=== PATIENT | male | born 2005 | race Caucasian/White ===

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

== ENCOUNTER → 2024-01-17 | Outpatient (CLI) | payer MEDICAID, SELFPAY ==
--- NOTE | 2024-01-17 17:09 | RAD_ITS ---
STUDY: X-RAY - LUMBAR SPINE REASON FOR EXAM: Male, 18 years old. LUMBAR STRAIN TECHNIQUE: 4 view(s) of the lumbar spine were obtained. COMPARISON: None FINDINGS: Normal lumbar lordosis. There is no substantial scoliosis. There is a normal alignment of the vertebrae. Normal vertebral bodies and endplates. Normal disc space heights. There is no demonstrated fracture or compression deformity. No pars interarticularis defects are seen. The soft tissue structures are unremarkable. RAD/L/S Spine Min 4 Views IMPRESSION: Normal x-ray examination of the lumbar spine. Electronically Signed: Gareth Dominguez MD at 8:40 EDT ,
--- OUTSIDE RECORDS SUMMARY | 2024-01-17 22:49 | XMS RPT_ITS | CCD ---
Author Name Unknown Address [address] [place] [address] Organization [facility] Care Team Providers Care Shipping Weigher Name Role Phone Robbie Iyre Primary Care Provider ROBBIE IYER Primary Care Unavailable REFERRED, SELF Referring Unavailable ROBBIE IYER Attending Unavailable REFERRED, SELF Referring Unavailable ROBBIE IYER Attending Unavailable ROBBIE IYER Primary Care Unavailable REFERRED, SELF Referring Unavailable ROBBIE IYER Attending Unavailable ROBBIE IYER Primary Care Unavailable Medications Current Medications Medication Drug Class(es) Dates Sig (Normalized) Sig (Original) oseltamivir 75 mg oral capsule (2 sources) Neuraminidase Inhibitor Start: 10-12-2022 End: 10-17-2022 take 1 capsule by mouth twice daily oseltamivir (TAMIFLU) 75 mg capsule Indications: Flu-like symptoms Take 1 capsule by mouth twice daily for 5 days. 10 capsule 0 10/12/2022 10/17/2022 Active Problems Problem Classification Problem Date Documented Da te Episodic/Chronic Other skin disorders (1 source) Skin lesion; Translations: [Disorder of the skin and subcutaneous tissue, unspecified] Episodic Residual codes; unclassified (1 source) Influenza-like symptoms; Translations: [Other general symptoms and signs] Episodic Results Test Name Value Interpretation Reference Range Facil ity Vital Signs Date Time Vital Sign Value Performing Clinician Faci lity 10-12-2022 18:52-0500 Body temperature 98.01 [degF] Jinny Obrien APRN.CNP Work Phone: [facility] 10-12-2022 18:52-0500 Body weight 71.22 kg Jinny Obrien APRN.CNP Work Phone: [facility] 10-12-2022 18:52-0500 Diastolic blood pressure 78 mm[Hg] Jinny Praisler-Wood RESERVOIR ENGINEERING CONSULTANT.IT PROGRAM ENGAGEMENT DIRECTOR Work Phone: [facility] 10-12-2022 18:52-0500 Heart rate 71 /min Jinny Praisler-Wood RESERVOIR ENGINEERING CONSULTANT.IT PROGRAM ENGAGEMENT DIRECTOR Work Phone: [facility] 10-12-2022 18:52-0500 Respiratory rate 16 /min Jinny Praisler-Wood RESERVOIR ENGINEERING CONSULTANT.IT PROGRAM ENGAGEMENT DIRECTOR Work Phone: [facility] 10-12-2022 18:52-0500 SaO2% (BldA) [Mass fraction] 97 % Jinny Praisler-Wood RESERVOIR ENGINEERING CONSULTANT.IT PROGRAM ENGAGEMENT DIRECTOR Work Phone: [facility] 10-12-2022 18:52-0500 Systolic blood pressure 128 mm[Hg] Jinny Praisler-Wood RESERVOIR ENGINEERING CONSULTANT.IT PROGRAM ENGAGEMENT DIRECTOR Work Phone: [facility] Encounters Encounter Date Encounter Type Care Provider Facility Start: 11-17-2023 End: 11-17-2023 ambulatory SELF REFERRED [facility] Start: 01-26-2023 End: 01-26-2023 ambulatory ROBBIE R [facility] Start: 12-30-2022 End: 12-30-2022 ambulatory SELF REFERRED [facility] Start: 10-13-2022 Telephone encounter Dorie lamar PA-C Work Phone: [facility] Plan of Treatment Date Care Activity Detail Author Start: 10-12-2022 End: 10-26-2022 Influenza virus A and B RNA and SARS-CoV-2 (COVID-19) N gene panel - Respiratory specimen by SISI with probe detection COVID WITH FLUA+B, ROUTINE Microbiology Routine Flu-like symptoms Expected: 10/12/2022, Expires: 10/26/2022 [facility] Work Phone: Payers Date Payer Category Payer Medicaid [employer] [id number] 2013-Present [phone] [address] [place] [address] Medicaid [id number] 2013 Medicaid [id number] 2004 Unknown [id number] 2004 Unknown [id number] 2004 Unknown [id number] Unknown [id number] Social History Date Type Detail Facility Tobacco smoking status NHIS Never smoked tobacco [facility] Start: 10-12-2022 Alcohol intake Not Asked Lulu norris [facility] Start: 2005 Sex Assigned At Not on file [facility] Note 10-13-2022 Telephone Encounter - Cass Zaldivar LPN - 10/13/2022 2:17 PM ESTTelephone Encounter - Dorie Walters PA-C - 10/13/2022 12:07 PM EST Note Date & Type Note Facility 10-13-2022 Miscellaneous Notes Formattin g of this note might be different from the original. Patient parent notified of results, verbalizes understanding of instructions. Cass Zaldviar LPN Let patient know he was negative for COVID and flu. He can discontinue Tamiflu. documented in this encounter [facility] Influenza virus A and B RNA and SARS-CoV-2 (COVID-19) N gene panel SISI+probe (Resp) 10-12-2022 Note Date & Type Note Facility 10-12-2022 Influenza virus A and B RNA and SARS-CoV-2 (COVID-19) N gene panel SISI+probe (Resp) COVID 19 RESULT: SARS-CoV-2 (Agent of COVID-19) Not Detected by RT-PCR or equivalent method. christie [id number] (VISHAL)_EUA This test was developed and its performance characteristics determined by [facility]'s [facility] [place]. This test has been authorized by FDA under an Emergency Use Authorization (EUA). This test has been validated in accordance with the FDA's Guidance Document Policy for Diagnostics Testing in Laboratories Certified to Perform High Complexity Testing under CLIA prior to Emergency use Authorization for Coronavirus Disease 2019 during the Public Health Emergency issued on January 04, 2020. Test performed by [facility], [facility] [place], [facility] [place] [address]. INFLUENZA A PCR: Negative for Influenza A by RT-PCR INFLUENZA B PCR: Negative for Influenza B by RT-PCR [facility] Progress note 10-12-2022 Note Date & Type Note Facility 10-12-2022 Note HNO ID: [id number] Author: Jinny Obrien APRN.IT PROGRAM ENGAGEMENT DIRECTOR Service: ? Author Type: Nurse Practitioner Type: Progress Notes Filed: 10/12/2022 8:05 PM Note Text: Subjective Fever Associated symptoms include congestion and sore throat. Pertinent negatives include no diarrhea, no vomiting, no headaches and no cough. Reginald Bose is a 17 year old male who presents with fever of 101 at home today, sore throat, nasal congestion. His brother has the flu. Reginald has had ibuprofen today for fever. He rates his sore throat pain 2/10. He also has a red spot on his left anterior neck that has been present for 2 weeks. It is not painful. He has not used anything on it at home. Review of Systems Constitutional: Positive for fever. HENT: Positive for congestion and sore throat. Negative for ear pain. Respiratory: Negative for cough. Cardiovascular: Negative. Gastrointestinal: Negative for diarrhea, nausea and vomiting. Musculoskeletal: Negative for myalgias. Skin: Negative for itching and rash. See HPI Neurological: Negative for headaches. BP 128/78 Pulse 71 Temp 36.7 ?C (98 ?F) (Tympanic) Resp 16 Wt 71.2 kg (157 lb) SpO2 97% History reviewed. No pertinent past medical history. PAST SURGICAL HISTORY Procedure Laterality Date ADENOIDECTOMY UNDER AGE 11 age 1 1/2 yrs TONSILLECTOMY HX age 5 yrs ALLERGIES Patient has no known allergies. MEDICATIONS oseltamivir (TAMIFLU) 75 mg capsule Take 1 capsule by mouth twice daily for 5 days. No family history on file. Social History Tobacco Use Smoking status: Never Objective Physical Exam Vitals and nursing note reviewed. Constitutional: General: He is not in acute distress. Appearance: Normal appearance. He is not toxic-appearing. HENT: Right Ear: Tympanic membrane, ear canal and external ear normal. Left Ear: Tympanic membrane, ear canal and external ear normal. Nose: Congestion present. Mouth/Throat: Mouth: Mucous membranes are moist. Pharynx: Oropharynx is clear. Uvula midline. No oropharyngeal exudate or posterior oropharyngeal erythema. Cardiovascular: Rate and Rhythm: Normal rate and regular rhythm. Heart sounds: Normal heart sounds. Pulmonary: Effort: Pulmonary effort is normal. No respiratory distress. Breath sounds: Normal breath sounds. No wheezing or rales. Musculoskeletal: Cervical back: Neck supple. Lymphadenopathy: Cervical: No cervical adenopathy. Skin: General: Skin is warm and dry. Findings: No erythema or rash. Neurological: Mental Status: He is alert. ASSESSMENT/PLAN: 1. Flu-like symptoms - ICD9: 780.99, ICD10: R68.89 (primary diagnosis) - OSELTAMIVIR 75 MG CAPSULE - COVID WITH FLUA+B, ROUTINE 2. Skin lesion - ICD9: 709.9, ICD10: L98.9 - use antibiotic ointment (neosporin) daily. If not resolving, follow up with PCP or dermatology. - Follow-up with your PCP in 3-5 days if symptoms have not improved or sooner if symptoms worsen - Discussed red flags and need for immediate medical evaluation if any occur. - Discussed supportive care treatment with fluids, rest and analgesia. - Discussed expected course of illness Jinny Obrien APRN.YAJAIRA [facility] History of Present illness Narrative 10-12-2022 Jinny Obrien APRN.YAJAIRA - 10/12/2022 7:31 PM EST Note Date & Type Note Facility 10-12-2022 History of Presen t illness Narrative Images from the original note were not included. Subjective Fever Associated symptoms include congestion and sore throat. Pertinent negatives include no diarrhea, no vomiting, no headaches and no cough. Reginald Bose is a 17 year old male who presents with fever of 101 at home today, sore throat, nasal congestion. His brother has the flu. Reginald has had ibuprofen today for fever. He rates his sore throat pain 2/10. He also has a red spot on his left anterior neck that has been present for 2 weeks. It is not painful. He has not used anything on it at home. Review of Systems Constitutional: Positive for fever. HENT: Positive for congestion and sore throat. Negative for ear pain. Respiratory: Negative for cough. Cardiovascular: Negative. Gastrointestinal: Negative for diarrhea, nausea and vomiting. Musculoskeletal: Negative for myalgias. Skin: Negative for itching and rash. See HPI Neurological: Negative for headaches. BP 128/78 Pulse 71 Temp 36.7 C (98 F) (Tympanic) Resp 16 Wt 71.2 kg (157 lb) SpO2 97% History reviewed. No pertinent past medical history. PAST SURGICAL HISTORY Procedure Laterality Date ADENOIDECTOMY UNDER AGE 11 age 1 1/2 yrs TONSILLECTOMY HX age 5 yrs ALLERGIES Patient has no known allergies. MEDICATIONS oseltamivir (TAMIFLU) 75 mg capsule Take 1 capsule by mouth twice daily for 5 days. No family history on file. Social History Tobacco Use Smoking status: Never Objective Physical Exam Vitals and nursing note reviewed. Constitutional: General: He is not in acute distress. Appearance: Normal appearance. He is not toxic-appearing. HENT: Right Ear: Tympanic membrane, ear canal and external ear normal. Left Ear: Tympanic membrane, ear canal and external ear normal. Nose: Congestion present. Mouth/Throat: Mouth: Mucous membranes are moist. Pharynx: Oropharynx is clear. Uvula midline. No oropharyngeal exudate or posterior oropharyngeal erythema. Cardiovascular: Rate and Rhythm: Normal rate and regular rhythm. Heart sounds: Normal heart sounds. Pulmonary: Effort: Pulmonary effort is normal. No respiratory distress. Breath sounds: Normal breath sounds. No wheezing or rales. Musculoskeletal: Cervical back: Neck supple. Lymphadenopathy: Cervical: No cervical adenopathy. Skin: General: Skin is warm and dry. Findings: No erythema or rash. Neurological: Mental Status: He is alert. ASSESSMENT/PLAN: 1. Flu-like symptoms - ICD9: 780.99, ICD10: R68.89 (primary diagnosis) - OSELTAMIVIR 75 MG CAPSULE - COVID WITH FLUA+B, ROUTINE 2. Skin lesion - ICD9: 709.9, ICD10: L98.9 - use antibiotic ointment (neosporin) daily. If not resolving, follow up with PCP or dermatology. - Follow-up with your PCP in 3-5 days if symptoms have not improved or sooner if symptoms worsen - Discussed red flags and need for immediate medical evaluation if any occur. - Discussed supportive care treatment with fluids, rest and analgesia. - Discussed expected course of illness Jinny Obrien APRN.CNP documented in this encounter [facility] Instructions 10-12-2022 Patient Instructions Note Date & Type Note Facility 10-12-2022 Instructions Jinny Obrien APRN.CNP - 10/12/2022 7:31 PM EST ASSESSMENT/PLAN: 1. Flu-like symptoms - ICD9: 780.99, ICD10: R68.89 (primary diagnosis) - OSELTAMIVIR 75 MG CAPSULE - COVID WITH FLUA+B, ROUTINE 2. Skin lesion - ICD9: 709.9, ICD10: L98.9 - use antibiotic ointment (neosporin) daily. If not resolving, follow up with PCP or dermatology. - Follow-up with your PCP in 3-5 days if symptoms have not improved or sooner if symptoms worsen - Discussed red flags and need for immediate medical evaluation if any occur. - Discussed supportive care treatment with fluids, rest and analgesia. - Discussed expected course of illness Jinny Obrien APRN.CNP [facility] PATIENT INFO INFLUENZA INTRODUCTION Influenza (commonly called the flu) is a highly contagious illness that can occur in children or adults of any age. It occurs more often in the winter months because people spend more time in close contact with one another. The flu is spread easily from [id number] by coughing, sneezing, or touching surfaces. Every year, complications of the flu require more than 200,000 people in the [place] to be hospitalized. Serious illness is more likely in the very young, older adults, women, and people who have certain health problems such as asthma or other forms of lung disease. There have been several widespread flu outbreaks (called pandemics), which led to the deaths of many people worldwide. These outbreaks occurred when new strains of influenza viruses formed (often from pigs or birds) and humans became infected because they had no immunity to these viruses. FLU SYMPTOMS Symptoms of seasonal flu can vary from person to person, but usually include: Fever (temperature higher than 100 F or 37.8 C) Headache and muscle aches Fatigue Cough and sore throat may also be present People with the flu usually have a fever for two to five days. This is different than fever caused by other upper respiratory viruses, which usually resolve after 24 to 48 hours. Some people have cold-like symptoms (runny nose, sore throat) during the flu while others have fever and muscle aches. Flu symptoms usually improve over two to five days, although the illness may last for a week or more. Weakness and fatigue may persist for several weeks Flu complications -- Complications of influenza occur in some people; pneumonia is the most common complication. Pneumonia is a serious infection of the lungs, and is more likely to occur in people over the age of 65, people who live in half-way care facilities (nursing homes), and those with other illnesses such as diabetes or conditions affecting the heart or lungs. FLU DIAGNOSIS Influenza is usually diagnosed based on symptoms (fever, cough and muscle aches). Lab testing for influenza is performed in certain cases, such as during a new influenza outbreak in a community. FLU TREATMENT When to seek help -- Most people with the flu recover within one to two weeks without treatment. However, serious complications of the flu can occur. Call your doctor or nurse immediately if: You feel short of breath or have trouble breathing You have pain or pressure in your chest or stomach You have signs of being dehydrated, such as dizziness when standing or not passing urine You feel confused You cannot stop vomiting or you cannot drink enough fluids There are several groups of people who are at increased risk for flu complications. These include women, young children (<5 years of age, and especially <2 years of age), people ?65 years of age, and people with certain diseases such as chronic lung disease (such as asthma), heart disease, diabetes, immunosuppressing conditions (such as HIV infection or transplantation), and some other diseases. If you or your child has flu symptoms and is at increased risk of flu complications, you should call your healthcare provider. Treat symptoms -- Treating the symptoms of influenza can help you to feel better, but will not make the flu go away faster. Rest until the flu is fully resolved, especially if the illness has been severe Fluids -- Drink enough fluids so that you do not become dehydrated. One way to laboratory scientist if you are drinking enough is to look at the color of your urine. Normally, urine should be light yellow to nearly colorless. If you are drinking enough, you should pass urine every three to five hours. Acetaminophen (such as Tylenol and other brands) can relieve fever, headache, and muscle aches. Aspirin, and medicines that include aspirin (eg, bismuth subsalicylate; PeptoBismol), are not recommended for children under 18 because aspirin can lead to a serious disease called Tali syndrome. Cough medicines are not usually helpful; cough usually resolves without treatment. We do not recommend cough or cold medicine for children under age six years. Antiviral treatment -- Antiviral medicines can be used to treat or prevent influenza. When used as a treatment, the medicine does not eliminate flu symptoms, although it can reduce the severity and duration of symptoms by about one day. Not every person with influenza needs an antiviral medicine; the decision is based upon your risk of developing complications of influenza. Antiviral treatment is most effective for seasonal influenza when it is taken within the first 48 hours of flu symptoms. Side effects -- Zanamivir and oseltamivir can cause mild side effects, including nausea and vomiting; zanamivir, which is inhaled, can cause difficulty breathing in some cases. Most people are able to continue the medicine despite the side effects. Antibiotics -- Antibiotics are NOT useful for treating viral illnesses such as influenza. Antibiotics should only used if there is a bacterial complication of the flu such as bacterial pneumonia, ear infection, or sinusitis. Antibiotics can cause side effects and lead to development of antibiotic resistance. documented in this encounter [facility] Evaluation note Note Date & Type Note Facility documented in this encounter [facility] Health Concerns Infection Onset Date Last Indicated Resolved Time COVID-19 Rule-Out 10/12/2022 10/12/2022 10/13/2022 11:43 AM EST Summary Purpose Family History No Family History Records FoundNo Family History Records Found Advance Directives No Advanced Directives Records FoundNo Advanced Directives Records Found Additional Source Comments Source Comments (unrecognize d section and content) In the event this informatio n is protected by the Federal Confidentiality of Alcohol and Drug Abuse Patient Records regulations: The Federal rules restrict any use of the information to criminally investigate or prosecute any alcohol or drug abuse patient.[facility] the event this information is protected by the Federal Confidentiality of Alcohol and Drug Abuse Patient Records regulations: The Federal rules restrict any use of the information to criminally investigate or prosecute any alcohol or drug abuse patient.[facility] Reason for Visit (unrecogniz ed section and content) Reason Comments Results Care Teams (unrecognized sec tion and content) Shipping Weigher Relationship Specialty Start Date End Date Robbie Iyer [address] [place] [id number] PCP - General Pediatrics 10/12/22 (unrecognized sect ion and content) No Status Records FoundNo Status Records Found INFORMATION SOURCE (unrecogn ized section and content) DATE CREATED AUTHOR AUTHOR'S ORGANIZ ATION 11/18/2023 [facility] FOR RECORDS PERTAINING TO PATIENTS WHO ARE OR HAVE BEEN ENROLLED IN A CHEMICAL DEPENDENCY/SUBSTANCEABUSE PROGRAM, SOME INFORMATION MAY BE OMITTED. This clinical summary was aggregated from multiple sources. Caution should be exercised in using it in the provision of clinical care. This summary normalizes information from multiple sources, and as a consequence, information in this document may materially change the coding, format and clinical context of patient data. In addition, data may be omitted in some cases. CLINICAL DECISIONS SHOULD BE BASED ON THE PRIMARY CLINICAL RECORDS. [facility]. provides no warranty or guarantee of the accuracy or completeness of information in this document.
== END | disposition home or self-care (01) ==
LOC: MTRAD 17:08
PROVIDERS: PCP Pediatrics; Referring Provider Chiropractor; Visit Provider Chiropractor
DX: S33.5XXA Sprain of ligaments of lumbar spine, initial encounter (principal)
CPT/HCPCS: 72110